=== PATIENT | female | born 1975 | race Caucasian/White ===

== ENCOUNTER 2018-10-24 00:31 | Outpatient (CLI) | payer BC, SELFPAY ==
--- NOTE | 2018-10-24 17:00 | DI.MAMMO_ITS ---
SYMPTOMS/DIAGNOSIS: SCREENING, Z12.31 MAMMOGRAM: Mammograms were interpreted according to the usual protocol including computer analysis with CAD system, tomosynthesis and C view imaging. Comparison is made with exams from 2009 through 2016. The breasts are composed of fatty density tissue. No suspicious masses or suspicious microcalcifications are seen. There has been no significant change. IMPRESSION: Category I A, negative mammogram. Yearly screening mammography is recommended. [facility] ASSESSMENT OF FINDINGS: Negative. Category 1. Patient will receive a letter notifying them of these results. BI-RAD category A. The breasts are almost entirely fatty.
== END 2018-10-24 00:51 ==
PROVIDERS: PCP Neuromusculoskeletal Medicine & OMM; Visit Provider Nurse Practitioner Family
DX: Z12.31 Encounter for screening mammogram for malignant neoplasm of breast (principal)
CPT/HCPCS: 77063; 77067

== ENCOUNTER 2021-01-18 08:45 | Outpatient (CLI) | payer BC, SELFPAY ==
--- NOTE | 2021-01-18 08:15 | DI.RAD_ITS ---
EXAM: XR KNEE LT 3V AP,LAT,VISHAL CLINICAL HISTORY: left knee pain TECHNIQUE: COMPARISON: No exams were available for comparison FINDINGS: Three views were obtained. There is mild lateral subluxation and mild narrowing of the cartilaginous joint space of the lateral aspect of the patellofemoral joint. Otherwise joint spaces are well main tained. Mild marginal osteophyte formation noted at the lateral aspect of the patella. No other bon y abnormality seen. IMPRESSION: RADIATION DOSE DELIVERED: Total DLP
== END 2021-01-18 08:46 | disposition home or self-care (01) ==
LOC: DIORS 08:46
PROVIDERS: PCP Neuromusculoskeletal Medicine & OMM; Referring Provider Neuromusculoskeletal Medicine & OMM; Visit Provider Student in an Organized Health Care Education/Training Program
DX: M25.562 Pain in left knee (principal); M22.2X2 Patellofemoral disorders, left knee
CPT/HCPCS: 73562

== ENCOUNTER 2021-01-31 12:44 | Outpatient (REF) | payer BC, SELFPAY ==
--- NOTE | 2021-01-31 11:30 | PAPFT_PTH ---
PATIENT: Arnaldo Chaney LOC: [facility] U#:[id number] AGE/SX: 45/F ROOM: RE01/31/[address]: BARRON Altamirano : 1975 BED: DIS: 01/31/2021 SPEC #: [id number] RECD: 01/31/21 17:59 STATUS: WOLF REQ #: [id number] CHAVO: 01/31/21 11:[address]: Inocencia Leung DEPT: [facility] Cytology RECD BY: Orquidea Guzman ENTERED: 01/31/21 17:59 SP TYPE: PAPFT OTHR DR: Domingo Mathis Tissues: 1 - CX/ENDOCX FOR PAP SMEARS Procedures: PAP THIN PREP/[facility] Screening HPV DNA PROBE Comments: [id number]
[2021-02-01 15:07] LABS: Chlamydia Result Negative (Negative); GC Result Negative (Negative)
== END 2021-01-31 12:45 | disposition home or self-care (01) ==
LOC: LBN 12:44
PROVIDERS: PCP Neuromusculoskeletal Medicine & OMM; Visit Provider Nurse Practitioner Family
DX: Z11.3 Encounter for screening for infections with a predominantly sexual mode of transmission (principal); Z12.4 Encounter for screening for malignant neoplasm of cervix; Z11.51 Encounter for screening for human papillomavirus (HPV)
CPT/HCPCS: 87491; 87591; 88142; 87624

== ENCOUNTER 2021-04-07 03:11 | Outpatient (CLI) | payer BC, SELFPAY ==
--- NOTE | 2021-04-07 08:00 | DI.MAMMO_ITS ---
Exam(s) MAMMO SCREENING EXAM: MAMMO SCREENING CLINICAL HISTORY: screening,Z12.39. TECHNIQUE: Bilateral full field digital CC and MLO mammographic images were obtained with 3D tomosyn thesis and utilizing computer aided detection (CAD). COMPARISON: Prior mammograms dating back to 2013, the most recent being October 2018. FINDINGS: There are no CAD designations. There are no new spiculated masses nor malignant appearing microcalcification groups. There is no significant architectural distortion nor skin thickening-retraction. IMPRESSION: No radiographic evidence of malignancy. BI-RADS Category 1 - Negative Breast Density - Category B - Scattered areas of fibroglandular density Breast density Category C or D implies that the patient has dense breast tissue. Dense breast tissue can make it harder to find cancer on a mammogram. Dense breast tissue is also associated with an incr eased risk of breast cancer. This information about the result of the mammogram report was provided to the patient to raise their awareness. Use this report when you speak with the patient about their risks for breast cancer, which includes their family history. At that time, you may recommend additional screening tests (Ultrasoun d or MRI) as these tests may add significant information. A negative radiographic report should not delay biopsy if a dominant or clinically suspicious mass is present. Up to ten percent of cancers are not identified on mammography. A negative report may reinforce clinical impression. Adenosis and dense breasts may obscure an underlying neoplasm. False positive reports average 6 to 10%. Patient will receive a letter notifying them of these results.
== END 2021-04-07 03:31 ==
PROVIDERS: PCP Neuromusculoskeletal Medicine & OMM; Visit Provider Nurse Practitioner Family
DX: Z12.31 Encounter for screening mammogram for malignant neoplasm of breast (principal); R92.8 Other abnormal and inconclusive findings on diagnostic imaging of breast
CPT/HCPCS: 77063; 77067

== ENCOUNTER 2021-04-19 03:11 | Outpatient (CLI) | payer BC, SELFPAY ==
--- NOTE | 2021-04-19 09:00 | DI.MRI_ITS ---
Exam(s) MR LOWER JOINT LT WO EXAM: MR LOWER JOINT LT WO CLINICAL HISTORY: L KNEE PAIN,CHONDROMALACIA LT PATELLA,PATELLAR TENDINITIS,INTERNAL DERANGE. TECHNIQUE: Multiplanar multisequence MRI was performed. COMPARISON: CR XR KNEE LT 3V AP,LAT,VISHAL from 01/18/2021 CR XR KNEE LT 3V AP,LAT,VISHAL from 01/18/2021 FINDINGS: BONES: There is no fracture or contusion pattern. JOINTS: There is thinning of the articular cartilage and subchondral edema at the patellofemoral join t laterally. There is a moderate joint effusion. TENDONS: Extensor mechanism: Unremarkable. Medial retinaculum: Unremarkable. Lateral retinaculum: Unremarkable. Popliteus: Unremarkable. MUSCLES: Unremarkable. MENISCI: There is globular hyperintense signal seen in the body and posterior horn of the medial meni scus. The findings are suspicious for degeneration. The lateral meniscus is unremarkable. SOFT TISSUES: Unremarkable. LIGAMENTS: Anterior Cruciate: There is hyperintense signal seen within the ligament. The fibers appear to be in tact. This may represent a sprain. Posterior Cruciate: Unremarkable. Medial Collateral:Unremarkable. Lateral Collateral: There is thickening and intermediate signal in the proximal lateral collateral li gament complex. This may represent a partial tear versus sprain. OTHER: IMPRESSION: 1. Hyperintense signal seen within the anterior cruciate ligament with intact fibers suspicious for s prain. 2. Thickening and intermediate signal in the proximal lateral collateral ligament complex suspicious for partial tear versus sprain. 3. Moderate joint effusion. 4. Degeneration of the medial meniscus. DATA REPOSITORY:
== END 2021-04-19 03:31 ==
PROVIDERS: PCP Neuromusculoskeletal Medicine & OMM; Visit Provider Student in an Organized Health Care Education/Training Program
DX: M22.42 Chondromalacia patellae, left knee (principal); M76.52 Patellar tendinitis, left knee; M23.304 Other meniscus derangements, unspecified medial meniscus, left knee
CPT/HCPCS: 73721